=== PATIENT | female | born 1955 | race Caucasian/White ===

== ENCOUNTER 2022-08-22 08:47 | Day surgery (SDC) | payer MEDICARE, OTHER ==
[2022-08-22] MEDS ORDERED: Scopolamine 1.5 MG Transdermal Patch TOP ONE (09:23)
[2022-08-22] MEDS ORDERED: Lactated Ringers 1,000 ML IV SCH (09:30)
[2022-08-22] MEDS ORDERED: Propofol 200 MG/20 ML SDV ONE (09:44)
[2022-08-22] MEDS ORDERED: fentaNYL 100 MCG/2 ML SDV ONE (09:44)
[2022-08-22] MEDS ORDERED: Scopolamine 1.5 MG Transdermal Patch TOP SCH (10:00)
[2022-08-22] MEDS ORDERED: Ondansetron 4 MG/2 ML SDV ONE (10:28)
== END 2022-08-22 11:43 | disposition home or self-care (01) ==
LOC: JP.SDS 08:47
PROVIDERS: ATTEND Student in an Organized Health Care Education/Training Program
DX: K29.50 Unspecified chronic gastritis without bleeding (principal); K29.60 Other gastritis without bleeding; K31.89 Other diseases of stomach and duodenum; K44.9 Diaphragmatic hernia without obstruction or gangrene; E78.5 Hyperlipidemia, unspecified; E11.9 Type 2 diabetes mellitus without complications; E66.9 Obesity, unspecified; Z79.899 Other long term (current) drug therapy; Z68.36 Body mass index [BMI] 36.0-36.9, adult
CPT/HCPCS: 43239; A9270; J2405; J2704; J3010; J7120

== ENCOUNTER 2023-05-09 15:55 | Emergency (ER) | payer MEDICARE, OTHER ==
[2023-05-09] MEDS: Diltiazem 25 MG/5 ML SDV IVPUSH ONE (16:24)
[2023-05-09 16:40] LABS: ANION GAP 11.7 mmol/L (5.0-14.0); CALCIUM 9.2 mg/dL (8.5-10.1); EST CRCL DRUG DOSING (CG) 54.08 mL/min; POTASSIUM,K 3.7 mmol/L (3.6-5.2)
[2023-05-09 16:42] LABS: BASOPHILS ABSOLUTE AUTO 0.09 K/uL (0.00-0.10); BASOPHILS PERCENT AUTO 1.2 % (0.1-1.3); EOSINOPHILS PERCENT AUTO 1.3 % (0.0-5.4); HEMATOCRIT 46.1 % (34.3-46.0); HEMOGLOBIN 15.6 g/dL (11.2-15.5); IMMATURE GRAN ABSOLUTE AUTO 0.02 K/uL (0.00-0.23); IMMATURE GRAN PERCENT AUTO 0.3 % (0.0-0.7); LYMPHOCYTES ABSOLUTE AUTO 2.11 K/uL (0.8-3.3); LYMPHOCYTES PERCENT AUTO 27.3 % (11.4-47.7); MEAN CORPUSCULAR HEMOGLOBIN 28.7 pg (31.6-35.5); MEAN CORPUSCULAR HGB CONC 33.8 g/dL (31.6-35.5); MEAN CORPUSCULAR VOLUME 84.9 fL (81.4-99.0); MONOCYTES ABSOLUTE AUTO 0.38 K/uL (0.20-0.90); MONOCYTES PERCENT AUTO 4.9 % (3.3-12.6); NEUTROPHILS ABSOLUTE AUTO 5.02 K/uL (1.0-7.6); PLATELET COUNT,PLT 258 K/uL (130-375); RED BLOOD CELL COUNT 5.43 M/uL (3.77-5.24); WHITE BLOOD CELL COUNT,WBC 7.7 K/uL (3.2-11.0)
[2023-05-09] MEDS: Diltiazem 100 MG in Sodium Chloride 0.9% 100 ML IV SCH (17:28)
[2023-05-09] MEDS: Sodium Chloride 0.9% 10 ML Syringe FLUSH PRN (17:28)
[2023-05-09] MEDS: Diltiazem 120 MG Cap.CD PO ONE (20:20)
[2023-05-09] MEDS: Apixaban 5 MG Tab PO ONE (20:20)
== END 2023-05-09 22:45 | disposition home or self-care (01) ==
LOC: JP.ED 15:55
DX: I48.91 Unspecified atrial fibrillation (principal); I48.92 Unspecified atrial flutter; Z88.1 Allergy status to other antibiotic agents; Z91.011 Allergy to milk products; Z91.018 Allergy to other foods; Z90.49 Acquired absence of other specified parts of digestive tract; Z90.710 Acquired absence of both cervix and uterus; Z79.899 Other long term (current) drug therapy
CPT/HCPCS: 36415; 80048; 84484; 85025; 93005; 96365; 96366; 96376; 99285; A9270; J3490; 93010